=== PATIENT | female | born 1970 | race Two or more races ===

== ENCOUNTER 2020-02-26 02:09 | Emergency (ER) | payer OTHER ==
[~2020-02-26] VITALS: Ht 157.5 cm; Wt 131.5 kg
[2020-02-26] MEDS ORDERED: CLARITIN10 M1 (02:28)
[2020-02-26] MEDS ORDERED: RELAFEN DS1000 MG (02:28)
[2020-02-26] MEDS ORDERED: ORPHENADRINE C100 MG PO (06:24)
[2020-02-26] MEDS ORDERED: KETO10TA2 PO (06:24)
== END 2020-02-26 06:51 | disposition home or self-care (01) ==
LOC: ER 02:09
DX: M54.2 Cervicalgia (principal); M62.830 Muscle spasm of back; G43.809 Other migraine, not intractable, without status migrainosus; Z03.818 Encounter for observation for suspected exposure to other biological agents ruled out

== ENCOUNTER 2025-01-20 15:47 | Inpatient (IN) | payer OTHER ==
[~2025-01-20] VITALS: Ht 157.5 cm; Wt 117.9 kg
[~2025-01-20 15:47] MED LIST: CLARITIN10 M1; KETO10TA2 PO; ORPHENADRINE C100 MG PO; RELAFEN DS1000 MG
[2025-01-20] MEDS ORDERED: PROVENTIL S2 MG/5 ML PO (16:16)
[2025-01-20] MEDS ORDERED: KETOROLAC TROMETHAMINE 30 MG VIAL IV ONE (17:30)
[2025-01-20] MEDS ORDERED: 0.9 % SODIUM CHLORIDE 1,000 ML IV ONE (17:30)
[2025-01-20 17:54] LABS: BASO % 0.2 % (0.1-1.2); EOS # 0.43 (0.04-0.54); EOS % 3.7 % (0.7-7.0); LYMPH # 3.25 (1.18-3.74); LYMPH % 28.1 % (19.3-53.1); MEAN PLATELET VOLUME 9.80 fl (9.4-12.4); MONO # 0.71 (0.24-0.82); MONO % 6.1 % (4.7-12.5); NEUT # 7.12 (1.56-6.13); NEUT % 61.5 % (34.0-71.1); RED CELL DISTRIBUTION WIDTH 14.2 % (11.6-14.4)
[2025-01-20 18:07] LABS: INR 1.05
[2025-01-20 18:13] LABS: ALT/SGPT 24.0 U/L (12-78); AST/SGOT 14.0 U/L (15-37); BILIRUBIN TOTAL 0.57 mg/dL (0.3-1.2); BILIRUBIN,CONJUGATED 0.16 mg/dL (0.0-0.2); BUN CREA RATIO 27.0 (7.0-25.0); CREATININE SERUM 0.91 mg/dL (0.55-1.02); GFR 64.42; GLOBULINA 4.0 G/DL (2.4-3.5); GLUCOSE FASTING 98.0 mg/dL (65-100); OSMOLALITY SERUM 286.0 MOSM/KG (275-295)
[2025-01-20 20:50] LABS: URINE APPEARANCE Clear; URINE BILIRRUBIN Negative (NEGATIVE); URINE BLOOD Negative; URINE COLOR Yellow; URINE GLUCOSE Negative (NEGATIVE); URINE KETONE Trace (NEGATIVE); URINE LEUKOCYTE Small; URINE NITRATE Negative; URINE PROTEIN Trace (NEGATIVE); URINE UROBILINOGEN 1.0 E.U./dl
[2025-01-20 20:55] LABS: URINE BACTERIA 381.5 uL (0.0-1933); URINE EPITHELIAL CELLS 40.6 uL (0.0-38.8); URINE RBC 26.9 uL (0.0-20.8); URINE WBC 384.1 uL (0.0-23.2)
[2025-01-20 21:09] LABS: URINE CAST 0.73 uL (0.0-1.40)
[2025-01-20] MEDS ORDERED: 0.9 % SODIUM CHLORIDE 1,000 ML IV SCH (21:15)
[2025-01-20] MEDS ORDERED: PIPERACILLIN/TAZOBACTAM SODIUM 3.375 GM in DEXTROSE 5 % IN WATER 100 ML IV SCH (21:24)
[2025-01-20] MEDS ORDERED: ACETAMINOPHEN 500 MG GEL..CAP PO PRN (21:30)
[2025-01-20] MEDS ORDERED: MORPHINE SULFATE 4 MG/ML CARTRIDGE IV PRN (21:30)
[2025-01-20] MEDS ORDERED: ONDANSETRON HCL 4 MG in 0.9 % SODIUM CHLORIDE 50 ML IV PRN (21:30)
[2025-01-20] MEDS ORDERED: KETOROLAC TROMETHAMINE 15 MG VIAL IU ONE (21:30)
[2025-01-20 22:43] VITALS: BP 100/60; O2SAT 97
[2025-01-21 00:14] VITALS: BP 96/63; O2SAT 98
[2025-01-21] MEDS ORDERED: FAMOTIDINE/PF 20 MG in 0.9 % SODIUM CHLORIDE 8 ML IV PUSH SCH ×2 (09:00→17:00)
[2025-01-21 09:56] VITALS: BP 131/82; O2SAT 96
[2025-01-21 19:50] VITALS: BP 116/74; O2SAT 97
[2025-01-22 03:09] VITALS: BP 90/56; O2SAT 96
[2025-01-22 08:05] LABS: BASO % 0.6 % (0.1-1.2); EOS # 0.53 (0.04-0.54); EOS % 5.0 % (0.7-7.0); LYMPH # 3.54 (1.18-3.74); LYMPH % 33.4 % (19.3-53.1); MEAN PLATELET VOLUME 9.90 fl (9.4-12.4); MONO # 0.64 (0.24-0.82); MONO % 6.0 % (4.7-12.5); NEUT # 5.79 (1.56-6.13); NEUT % 54.7 % (34.0-71.1); RED CELL DISTRIBUTION WIDTH 14.1 % (11.6-14.4)
[2025-01-22 10:38] VITALS: BP 112/68; O2SAT 97
== END 2025-01-22 16:52 | disposition home or self-care (01) | DRG 446 ==
LOC: ER 16:12 → MEDJ 21:36
PROVIDERS: General Practice; Internal Medicine; ADMIT Internal Medicine; ATTEND Internal Medicine
PROC: BW21YZZ Computerized Tomography (CT Scan) of Abdomen and Pelvis using Other Contrast (ICD-10-PCS; principal; 2025-01-20)
PROC: BF37ZZZ Magnetic Resonance Imaging (MRI) of Pancreas (ICD-10-PCS; 2025-01-20)
DX: K80.20 Calculus of gallbladder without cholecystitis without obstruction (principal); D72.829 Elevated white blood cell count, unspecified; R10.11 Right upper quadrant pain; Z98.84 Bariatric surgery status